=== PATIENT | female | born 1970 | race Caucasian/White ===

== ENCOUNTER 2016-10-14 20:23 | Emergency (ER) | payer OTHER ==
[~2016-10-14 20:23] MED LIST: BUSPIRONE HCL15 MG PO; LORTAB 5-325 M1 EACH PO; NORCO 5-325 TA1 EACH PO; PHENERGAN 25 MG25 M1 PO; PRILOSEC OTC20 MG PO; SEROQUEL25 MG PO; SYMBICORT 80-41 INHA INH; TRAZODONE HCL100 MG PO; TRILEPTAL300 MG PO; TRILEPTAL600 MG PO; VENTOLIN/PROVE0.5 ML INH; ZENPEP DR 20,01 EACH PO; ZYVOX600 MG PO
== END 2016-10-14 21:42 | disposition home or self-care (01) ==
LOC: ER1 20:23
DX: K94.23 Gastrostomy malfunction (principal); K85.90 Acute pancreatitis without necrosis or infection, unspecified; Z88.1 Allergy status to other antibiotic agents; F17.210 Nicotine dependence, cigarettes, uncomplicated; Z90.49 Acquired absence of other specified parts of digestive tract
CPT/HCPCS: 99282